=== PATIENT | female | born 1985 | race Caucasian/White ===

== ENCOUNTER 2016-08-19 03:49 | Emergency (ER) | payer MEDICAID, OTHER ==
[~2016-08-19] VITALS: Ht 167.6 cm; Wt 84.1 kg
[2016-08-19] MEDS ORDERED: GI COCKTAIL 50ML BTL(HYOSCYAMINE/MAALOX/LIDOCAINE VISCOUS)(1:3:1) PO ONE (06:30)
[2016-08-19] MEDS ORDERED: ONDANSETRON 4 MG ORAL DISINTEGRATING TAB (S0181) PO ONE (06:30)
[2016-08-19 06:52] LABS: WHITE BLOOD COUNT 10.6 K/mm3 (4.0-10.0)
[2016-08-19 06:53] LABS: BASO # 0.1 K/mm3 (0.0-0.2); BASO % 0.6 % (0.0-1.0); EOS # 0.5 K/mm3 (0.0-0.50); EOS % 4.6 % (0.0-3.0); LARGE UNSTAINED CELL # 0.1 K/mm3 (0.0-0.4); LARGE UNSTAINED CELL % 0.9 % (0.0-4.0); LYMPH # 1.6 K/mm3 (1.5-4.5); LYMPH % 14.8 % (24.0-44.0); MEAN CORPUSCULAR HEMOGLOBIN 33.3 pg (27.0-33.0); MEAN CORPUSCULAR HGB CONC 35.2 g/dl (32.0-36.5); MEAN CORPUSCULAR VOLUME 94.5 fl (80.0-96.0); MONO # 0.4 K/mm3 (0.0-0.8); MONO % 4.2 % (0.0-5.0); NEUTROPHILS # 7.9 K/mm3 (1.8-7.7); NEUTROPHILS % 74.9 % (36.0-66.0); PLATELET COUNT, AUTOMATED 295 k/mm3 (150-450); RED CELL DISTRIBUTION WIDTH 12.2 % (11.5-14.5)
[2016-08-19 07:22] LABS: CONTROL LINE HCG INT CTR LINE PRESENT
[2016-08-19 07:26] LABS: ALBUMIN 4.1 GM/DL (3.2-5.2); ALBUMIN/GLOBULIN RATIO 1.28 (1.00-1.93); ALKALINE PHOSPHATASE 91 U/L (45-117); ALT/SGPT 23 U/L (12-78); AMYLASE 30 U/L (25-115); ANION GAP 7 MEQ/L (8-16); AST/SGOT 14 U/L (15-37); BILIRUBIN,DIRECT < 0.1 MG/DL (0.0-0.2); BILIRUBIN,TOTAL 0.4 MG/DL (0.2-1.0); BLOOD UREA NITROGEN 11 MG/DL (7-18); CALCIUM LEVEL 9.2 MG/DL (8.5-10.1); CARBON DIOXIDE LEVEL 25 MEQ/L (21-32); CHLORIDE LEVEL 109 MEQ/L (98-107); CREATININE FOR GFR 0.65 MG/DL (0.55-1.02); GLOMERULAR FILTRATION RATE > 60.0 (>60); GLUCOSE, FASTING 95 MG/DL (70-105); POTASSIUM SERUM 4.3 MEQ/L (3.5-5.1); SODIUM LEVEL 141 MEQ/L (136-145); TOTAL PROTEIN 7.3 GM/DL (6.4-8.2)
[2016-08-19] MEDS ORDERED: ZOFR4TAB3 PO (08:35)
[2016-08-19] MEDS ORDERED: PRIL20TA2 PO (08:35)
[2016-08-19 08:43] VITALS: BP 111/58
--- NOTE | 2016-08-19 09:21 | REP ---
RIGHT UPPER QUADRANT ULTRASOUND: Real-time sonographic evaluation of the right upper quadrant performed. The gallbladder demonstrates no evidence of intraluminal sludge or calculi, wall thickening, or pericholecystic fluid. There is intrahepatic or extrahepatic biliary dilatation, common bile duct measuring 6 mm in diameter. Liver and pancreas demonstrate homogenous echotexture with no gross mass. Right kidney demonstrates no hydronephrosis or nephrolithiasis with normal size at 11.2 cm in length. Visualized abdominal aorta is normal in caliber. IMPRESSION: Negative right upper quadrant ultrasound. Signed by Hermilo Boyd MD 08/19/2016 05:21 P
== END 2016-08-19 08:44 | disposition home or self-care (01) ==
LOC: M ED 03:49
DX: K21.9 Gastro-esophageal reflux disease without esophagitis (principal); R10.13 Epigastric pain; R10.11 Right upper quadrant pain; R11.2 Nausea with vomiting, unspecified; F17.200 Nicotine dependence, unspecified, uncomplicated

== ENCOUNTER → 2017-06-30 | Outpatient (CLI) | payer OTHER ==
[2017-06-30 17:40] LABS: ESTIMATED AVERAGE GLUCOSE 88 MG/DL (60-110); HEMOGLOBIN A1c 4.7 %
[2017-06-30 18:29] LABS: PROLACTIN 13.1 NG/ML
[2017-07-05 17:41] LABS: DEHYDROEPIANDROSTERONE UNCONJ 164 ng/dL (31-701)
== END ==
LOC: M WUC 15:06
DX: N92.6 Irregular menstruation, unspecified (principal); N94.4 Primary dysmenorrhea; L68.0 Hirsutism; Z32.02 Encounter for pregnancy test, result negative
CPT/HCPCS: 84146

== ENCOUNTER → 2017-08-12 | Outpatient (REF) | payer OTHER | LOC: M SFHCLERA 09:38 | DX: R39.15 Urgency of urination (principal) | CPT/HCPCS: 87186 ==

== ENCOUNTER → 2017-09-09 | Outpatient (REF) | payer OTHER | LOC: M SFHCLUC 10:22 | DX: N39.0 Urinary tract infection, site not specified (principal) ==